=== PATIENT | female | born 1990 | race African-American/Black ===

== ENCOUNTER 2018-04-22 08:32 | Inpatient (IN) | payer MEDICAID, OTHER ==
[~2018-04-22] VITALS: Ht 160 cm; Wt 67.1 kg
[2018-04-22] MEDS ORDERED: IOHEXOL 350 MG/ML 10 ML VIAL (for RAD DIAG) IVCONTRAST ONE (08:33)
[2018-04-22 08:39] VITALS: BP 132/58; PULSE 64; RESP 16; TEMP 98.8; O2SAT 99
[2018-04-22] MEDS ORDERED: SODIUM CHLOR 0.9% 1000 ML INJ 1,000 ML IV SCH (08:54)
[2018-04-22] MEDS ORDERED: PREN1MIS10 (08:55)
[2018-04-22] MEDS ORDERED: ONDANSETRON HCL 4 MG/2 ML VIAL IVP ONE (09:00)
[2018-04-22] MEDS ORDERED: SODIUM CHLORIDE 0.9% FLUSH 10 ML FLUSH IV FLUSH PRN ×2 (09:00→15:15)
[2018-04-22] MEDS ORDERED: METOCLOPRAMIDE HCL 10 MG/2 ML VIAL IV PUSH ONE (09:00)
[2018-04-22] MEDS ORDERED: MORPHINE SULFATE 4 MG/ML INJ IV PUSH ONE (09:00)
--- NOTE | 2018-04-22 09:03 | PD ---
HPI Chief Complaint: GI Complaint Time Seen by Provider: 08:53 Travel History International Travel<30 days: No Contact w/Intl Traveler<30days: No Traveled to known affect area: No History of Present Illness HPI 27-year-old female patient presents to the ER today for 2 weeks of periumbilical abdominal pain which she currently rates at a 6 out of 10. She states that it comes and goes and gets worse at time, was worse today. She denies any nausea, vomiting, fevers, or other symptoms. She states it feels like a pulling. She has had this intermittently in the past but has never been checked out. She feels like there is a hard lump at that spot. She does not know of any alleviating or exacerbating factors. Modifying Factors: None Associated Signs & Symptoms: Periumbilical abdominal pain for 2 weeks Risk Factors: None PFSH Past Medical History Medical History: Denies Significant Hx Diminished Hearing: No Tetanus Vaccination: Unknown Influenza Vaccination: No ?: Unknown LMP: 04/19/18 Past Surgical History Section: Yes Social History Alcohol Use: No Tobacco Use: No Substance Use: No Allergies-Medications (Allergen,Severity, Reaction): Coded Allergies: No Known Allergies (Verified , 09/09/17) Reported Meds & Prescriptions Reported Meds & Active Scripts Active Reported One A Day Womens 28-0.8 & 223 mg ( Vit W/ Ferrous Fumara) 28- 800-223 Mis Review of Systems Except as stated in HPI: all other systems reviewed are Neg Physical Exam Narrative GENERAL: Well-developed young -[place] female patient currently in mild distress. Awake and oriented 3. SKIN: Focused skin assessment warm/dry. HEAD: Atraumatic. Normocephalic. EYES: Pupils equal and round. No scleral icterus. No injection or drainage. ENT: No nasal bleeding or discharge. Mucous membranes pink and moist. NECK: Trachea midline. No JVD. CARDIOVASCULAR: Regular rate and rhythm. No murmur appreciated. RESPIRATORY: No accessory muscle use. Clear to auscultation. Breath sounds equal bilaterally. GASTROINTESTINAL: Abdomen soft, tender palpation in the periumbilical region without palpable deformities, no guarding or rebound, nondistended. Hepatic and splenic margins not palpable. MUSCULOSKELETAL: No obvious deformities. No clubbing. No cyanosis. No edema. NEUROLOGICAL: Awake and alert. No obvious cranial nerve deficits. Motor grossly within normal limits. Normal speech. PSYCHIATRIC: Appropriate mood and affect; insight and judgment normal. Data Data Last Documented VS Vital Signs Date Time Temp Pulse Resp B/P (MAP) Pulse Ox O2 Delivery O2 Flow Rate FiO2 04/22/18 08:39 98.8 64 16 132/58 (82) 99 Orders Orders Complete Blood Count With Diff (04/22/18 08:54) Comprehensive Metabolic Panel (04/22/18 08:54) Lipase (04/22/18 08:54) Urinalysis - C+S If Indicated (04/22/18 08:54) Ct Abd/Pel W Iv Contrast(Rout) (04/22/18 08:54) Iv Access Insert/Monitor (04/22/18 08:54) Ecg Monitoring (04/22/18 08:54) Oximetry (04/22/18 08:54) Morphine Inj (Morphine Inj) (04/22/18 09:00) Ondansetron Inj (Zofran Inj) (04/22/18 09:00) Sodium Chlor 0.9% 1000 Ml Inj (Ns 1000 M (04/22/18 08:54) Sodium Chloride 0.9% Flush (Ns Flush) (04/22/18 09:00) Ed Urine Pregnancytest Poc (04/22/18 08:54) Metoclopramide Inj (Reglan Inj) (04/22/18 09:00) Iohexol 350 Inj (Omnipaque 350 Inj) (04/22/18 08:33) Ed Discharge Order (04/22/18 12:44) Labs Laboratory Tests Test 04/22/18 09:15 White Blood Count 8.6 TH/MM3 Red Blood Count 4.04 MIL/MM3 Hemoglobin 11.0 GM/DL Hematocrit 33.2 % Mean Corpuscular Volume 82.0 FL Mean Corpuscular Hemoglobin 27.3 PG Mean Corpuscular Hemoglobin Concent 33.3 % Red Cell Distribution Width 15.5 % Platelet Count 384 TH/MM3 Mean Platelet Volume 6.0 FL Neutrophils (%) (Auto) 58.8 % Lymphocytes (%) (Auto) 30.7 % Monocytes (%) (Auto) 9.0 % Eosinophils (%) (Auto) 1.2 % Basophils (%) (Auto) 0.3 % Neutrophils # (Auto) 5.1 TH/MM3 Lymphocytes # (Auto) 2.6 TH/MM3 Monocytes # (Auto) 0.8 TH/MM3 Eosinophils # (Auto) 0.1 TH/MM3 Basophils # (Auto) 0.0 TH/MM3 CBC Comment DIFF FINAL Differential Comment Urine Color YELLOW Urine Turbidity CLEAR Urine pH 7.0 Urine Specific [place] 1.019 Urine Protein TRACE mg/dL Urine Glucose (UA) NEG mg/dL Urine Ketones 10 mg/dL Urine Occult Blood NEG Urine Nitrite NEG Urine Bilirubin NEG Urine Urobilinogen LESS THAN 2.0 MG/DL Urine Leukocyte Esterase NEG Urine RBC 1 /hpf Urine WBC 1 /hpf Urine Squamous Epithelial Cells 1 /hpf Urine Mucus FEW /lpf Microscopic Urinalysis Comment CULT NOT INDICATED Blood Urea Nitrogen 8 MG/DL Creatinine 0.72 MG/DL Random Glucose 75 MG/DL Total Protein 7.9 GM/DL Albumin 3.7 GM/DL Calcium Level 9.0 MG/DL Alkaline Phosphatase 44 U/L Aspartate Amino Transf (AST/SGOT) 15 U/L Alanine Aminotransferase (ALT/SGPT) 18 U/L Total Bilirubin 0.6 MG/DL Sodium Level 138 MEQ/L Potassium Level 3.5 MEQ/L Chloride Level 105 MEQ/L Carbon Dioxide Level 22.4 MEQ/L Anion Gap 11 MEQ/L Estimat Glomerular Filtration Rate 118 ML/MIN Lipase 88 U/L MDM Medical Decision Making Medical Screen Exam Complete: Yes Emergency Medical Condition: Yes Medical Record Reviewed: Yes Interpretation(s) Laboratory Tests Test 04/22/18 09:15 Hemoglobin 11.0 GM/DL (11.6-15.3) Hematocrit 33.2 % (35.0-46.0) Mean Platelet Volume 6.0 FL (7.0-11.0) Monocytes (%) (Auto) 9.0 % (0.0-8.0) Urine Ketones 10 mg/dL (NEG) Urine Mucus FEW /lpf (OCC) Alkaline Phosphatase 44 U/L (45-117) Last 24 hours Impressions Abdomen/Pelvis CT 04/22/18 7135 Signed Impressions: CONCLUSION: Differential Diagnosis Periumbilical abdominal pains: Umbilical hernia versus gastritis versus diverticulitis versus other acute intra-abdominal processes Narrative Course Lab work was fairly unremarkable. CAT scan does show an umbilical hernia with small amount of fat, mild edema patient was reevaluated at 12:30 PM, states that her pain is gone. The case was discussed with Dr. Heaton of general surgery who states that the patient could follow-up if pain is controlled and otherwise does not show signs of obstruction, can follow-up in his office for further treatment. No signs of obstruction or other acute processes were identified. At this point, I have also talked about admission for further treatment with the patient as previously discussed with Dr. Heaton as well if the patient cannot tolerate the pain, but she states the pain is gone and she has insurance issues, is foreign and states she is only visiting for a few months, so she is not sure she can afford to get surgery done now. She states that she would rather go home at this point. She should return for any worsening in pain, vomiting, and as needed. Case is discussed with the patient and she states understanding. Diagnosis Primary Impression: Umbilical hernia Med/Other Pt SpecificInfo: Prescription(s) given Scripts Ibuprofen (Ibuprofen) 600 Mg Tab 600 MG PO Q6H Y for Pain/Inflammation, #20 TAB 0 Refills Prov: Lacho Adames MD 04/22/18 Disposition: 01 DISCHARGE HOME Condition: Stable Lacho Adames MD April 22, 2018 09:03
[2018-04-22 09:30] LABS: AUTOMATED NEUTROPHIL # 5.1 TH/MM3 (1.8-7.7); BASOPHIL % 0.3 % (0.0-2.0); EOSINOPHIL # 0.1 TH/MM3 (0-0.4); EOSINOPHIL % 1.2 % (0.0-4.0); HEMATOCRIT 33.2 % (35.0-46.0); LYMPH % 30.7 % (9.0-44.0); LYMPHOCYTE # 2.6 TH/MM3 (1.0-4.8); MEAN CORPUSCULAR HEMOGLOBIN 27.3 PG (27.0-34.0); MEAN CORPUSCULAR HGB CONC 33.3 % (32.0-36.0); MONOCYTE # 0.8 TH/MM3 (0-0.9); NEUT % 58.8 % (16.0-70.0); PLATELET COUNT 384 TH/MM3 (150-450); RED BLOOD COUNT 4.04 MIL/MM3 (4.00-5.30); RED CELL DISTRIBUTION WIDTH 15.5 % (11.6-17.2); WHITE BLOOD COUNT 8.6 TH/MM3 (4.0-11.0)
[2018-04-22 09:42] LABS: BILIRUBIN, URINE NEG (NEG); BLOOD, URINE NEG (NEG); GLUCOSE,URINE NEG (NEG); KETONE, URINE 10 mg/dL (NEG); MUCUS URINE FEW /lpf (OCC); NITRITE,URINE NEG (NEG); SQUAMOUS EPITHELIAL CELL URINE 1 /hpf (0-5); URINE COLOR YELLOW (YELLW/STRAW); URINE LEUKOCYTE ESTERASE NEG (NEG)
[2018-04-22 09:53] LABS: ALBUMIN 3.7 GM/DL (3.4-5.0); BICARBONATE 22.4 MEQ/L (21.0-32.0); BLOOD UREA NITROGEN 8 MG/DL (7-18); CHLORIDE 105 MEQ/L (98-107); CREATININE 0.72 MG/DL (0.50-1.00); GLOMERULAR FILTRATION RATE 118 ML/MIN (>89); GLUCOSE,RANDOM 75 MG/DL (74-106); SODIUM (NA) 138 MEQ/L (136-145)
[2018-04-22 09:54] LABS: ALT (GPT) 18 U/L (10-53); AST (GOT) 15 U/L (15-37)
[2018-04-22 09:56] LABS: ALKALINE PHOSPHATASE 44 U/L (45-117); TOTAL BILIRUBIN ADULT 0.6 MG/DL (0.2-1.0); TOTAL PROTEIN 7.9 GM/DL (6.4-8.2)
--- NOTE | 2018-04-22 12:31 | RADRPT ---
EXAM DATE: 04/22/2018 12:21 PM EDT AGE/SEX: 27 years / Female INDICATIONS: pAIN FOR TWO WEEKS LUMP AREA AT THE THE AREA OF THE UMBILICUS CLINICAL DATA: This is the patient's initial encounter. Patient reports that signs and symptoms have been present for 2 weeks and indicates a pain score of 6/10. MEDICAL/SURGICAL HISTORY: None. None. ORAL CONTRAST: No oral contrast ingested. RADIATION DOSE: 6.64 CTDI (mGy) COMPARISON: No prior exams available for comparison. TECHNIQUE: Multiple contiguous axial images were obtained through the abdomen and pelvis following b olus infusion of 97 ml Omnipaque 350 (iohexol) nonionic water-soluble contrast as a single exam dos e. No oral contrast ingested. Using automated exposure control and adjustment of the mA and/or kV ac cording to patient size, the radiation dose was kept as low as reasonably achievable to obtain optima l diagnostic quality images. FINDINGS: Dependent atelectasis present in the lungs. No acute findings in the liver, spleen, adrenals, kidneys or pancreas. No calcified gallstones or fazal iary ductal dilatation. No free fluid. No bowel obstruction. No adenopathy. 2 cm right adnexal cyst. There is a small umbilical hernia containing fat and possibly associated with some mild edema. CONCLUSION: 1. 2 cm umbilical hernia containing fat and some edema or inflammatory change. No acute findings wit hin the abdomen and pelvis. Small right adnexal cyst. Electronically signed by: Bandar Hyman MD 04/22/2018 12:30 PM EDT
[2018-04-22] MEDS ORDERED: IBUP-232 PO (12:53)
[2018-04-22 14:23] VITALS: BP 130/65; PULSE 62; RESP 18; O2SAT 99
[2018-04-22] MEDS ORDERED: MORPHINE SULFATE 4 MG/ML INJ IV PRN (15:15)
[2018-04-22] MEDS ORDERED: ONDANSETRON ODT 4 MG TAB PO PRN (15:15)
--- NOTE | 2018-04-22 15:23 | HHI.HP ---
cc: Alok Heaton MD HPI Service General Surgery Primary Care Physician No Primary Care Physician Admission Diagnosis Umbilical hernia with incarceration Chief Complaint: Abodminal pain x 2 weeks History of Present Illness This is a 27 year old female with no significant medical history who presents to the ED with complaints of periumbilical pain, nausea and vomiting. She describes her pain as sharp and rates it a 6 out of 10. She reports this pain has been going on for about 2 weeks. She reports her last bowel movement was Friday. She reports she is passing very little flatus. A CT abdomen/pelvis was obtained which visualizes a 2 cm fat containing umbilical hernia. She continues to have a moderate amount of tenderness around her umbilicus. A General Surgery admission has been requested. Review of Systems Constitutional: DENIES: Fatigue, Chills, Change in appetite Endocrine: DENIES: Polydipsia, Polyuria, Polyphagia Eyes: DENIES: Diplopia, Eye inflammation Ears, nose, mouth, throat: DENIES: Hearing loss Respiratory: DENIES: Apneas Cardiovascular: DENIES: Chest pain Gastrointestinal: COMPLAINS OF: Abdominal pain, Nausea, Vomiting Genitourinary: DENIES: Urinary frequency Musculoskeletal: DENIES: Joint pain Integumentary: DENIES: Abnormal pigmentation Hematologic/lymphatic: DENIES: Bruising Immunologic/allergic: DENIES: Eczema Neurologic: DENIES: Abnormal gait, Headache, Localized weakness Psychiatric: DENIES: Mood changes, Depression, Hallucinations Past Family Social History Past Medical History None Past Surgical History section Reported Medications None Allergies: Coded Allergies: No Known Allergies (Verified , 09/09/17) Active Ordered Medications Current Medications Medications (Trade) Dose Ordered Sig/Leeann Route Start Time Stop Time Status Last Admin (NS Flush) 2 ml UNSCH PRN IV FLUSH 04/22/18 09:00 Family History Noncontributory Social History Denies tobacco use Denies ETOH use Denies illicit drug use Physical Exam Vital Signs Vital Signs Date Time Temp Pulse Resp B/P (MAP) Pulse Ox O2 Delivery O2 Flow Rate FiO2 04/22/18 14:23 62 18 130/65 (86) 99 Room Air 04/22/18 08:39 98.8 64 16 132/58 82 99 Physical Exam GENERAL: Very pleasant 27 year old female resting in bed in no acute distress. SKIN: Warm and dry. HEAD: Atraumatic. Normocephalic. EYES: Pupils equal and round. No scleral icterus. No injection or drainage. ENT: No nasal bleeding or discharge. Mucous membranes pink and moist. NECK: Trachea midline. CARDIOVASCULAR: Regular rate and rhythm. RESPIRATORY: No accessory muscle use. Clear to auscultation. Breath sounds equal bilaterally. GASTROINTESTINAL: Abdomen soft, nondistended. Periumbilical area is tender to palpation; non-reducible umbilical hernia. MUSCULOSKELETAL: Extremities without clubbing, cyanosis, or edema. No obvious deformities. NEUROLOGICAL: Awake and alert. No obvious cranial nerve deficits. Motor grossly within normal limits. Five out of 5 muscle strength in the arms and legs. Normal speech. PSYCHIATRIC: Appropriate mood and affect; insight and judgment normal. Laboratory Laboratory Tests Test 04/22/18 09:15 White Blood Count 8.6 Red Blood Count 4.04 Hemoglobin 11.0 Hematocrit 33.2 Mean Corpuscular Volume 82.0 Mean Corpuscular Hemoglobin 27.3 Mean Corpuscular Hemoglobin Concent 33.3 Red Cell Distribution Width 15.5 Platelet Count 384 Mean Platelet Volume 6.0 Neutrophils (%) (Auto) 58.8 Lymphocytes (%) (Auto) 30.7 Monocytes (%) (Auto) 9.0 Eosinophils (%) (Auto) 1.2 Basophils (%) (Auto) 0.3 Neutrophils # (Auto) 5.1 Lymphocytes # (Auto) 2.6 Monocytes # (Auto) 0.8 Eosinophils # (Auto) 0.1 Basophils # (Auto) 0.0 CBC Comment DIFF FINAL Differential Comment Urine Color YELLOW Urine Turbidity CLEAR Urine pH 7.0 Urine Specific [place] 1.019 Urine Protein TRACE Urine Glucose (UA) NEG Urine Ketones 10 Urine Occult Blood NEG Urine Nitrite NEG Urine Bilirubin NEG Urine Urobilinogen LESS THAN 2.0 Urine Leukocyte Esterase NEG Urine RBC 1 Urine WBC 1 Urine Squamous Epithelial Cells 1 Urine Mucus FEW Microscopic Urinalysis Comment CULT NOT INDICATED Blood Urea Nitrogen 8 Creatinine 0.72 Random Glucose 75 Total Protein 7.9 Albumin 3.7 Calcium Level 9.0 Alkaline Phosphatase 44 Aspartate Amino Transf (AST/SGOT) 15 Alanine Aminotransferase (ALT/SGPT) 18 Total Bilirubin 0.6 Sodium Level 138 Potassium Level 3.5 Chloride Level 105 Carbon Dioxide Level 22.4 Anion Gap 11 Estimat Glomerular Filtration Rate [address] abdomen/pelvis--- fat containing umbilical hernia; no signs of obstruction Caprini VTE Risk Assessment Caprini VTE Risk Assessment: No/Low Risk (score <= 1) VTE Pharm Contraindication: going to OR tomorrow Caprini Risk Assessment Model Point Value = 1 Point Value = 2 Point Value = 3 Point Value = 5 Age 41-60 Minor surgery BMI > 25 kg/m2 Swollen legs Varicose veins or History of unexplained or recurrent spontaneous Oral contraceptives or hormone replacement Sepsis (< 1 month) Serious lung disease, including pneumonia (< 1 month) Abnormal pulmonary function Acute myocardial infarction Congestive heart failure (< 1 month) History of inflammatory bowel disease Medical patient at bed rest Age 61-74 Arthroscopic surgery Major open surgery (> 45 min) Laparoscopic surgery (> 45 min) Malignancy Confined to bed (> 72 hours) Immobilizing plaster cast Central venous access Age >= 75 History of VTE Family history of VTE Factor V Leiden Prothrombin [id number] Lupus anticoagulant Anticardiolipin antibodies Elevated serum homocysteine Heparin-induced thrombocytopenia Other congenital or acquired thrombophilia Stroke (< 1 month) Elective arthroplasty Hip, pelvis, or leg fracture Acute spinal cord injury (< 1 month) Prophylaxis Regimen Total Risk Factor Score Risk Level Prophylaxis Regimen 0-1 Low Early ambulation 2 Moderate Order ONE of the following: *Sequential Compression Device (SCD) *Heparin 5000 units SQ BID 3-4 Higher Order ONE of the following medications: *Heparin 5000 units SQ TID *Enoxaparin/Lovenox 40 mg SQ daily (WT < 150 kg, CrCl > 30 mL/min) *Enoxaparin/Lovenox 30 mg SQ daily (WT < 150 kg, CrCl > 10-29 mL/min) *Enoxaparin/Lovenox 30 mg SQ BID (WT < 150 kg, CrCl > 30 mL/min) AND/OR *Sequential Compression Device (SCD) 5 or more Highest Order ONE of the following medications: *Heparin 5000 units SQ TID (Preferred with Epidurals) *Enoxaparin/Lovenox 40 mg SQ daily (WT < 150 kg, CrCl > 30 mL/min) *Enoxaparin/Lovenox 30 mg SQ daily (WT < 150 kg, CrCl > 10-29 mL/min) *Enoxaparin/Lovenox 30 mg SQ BID (WT < 150 kg, CrCl > 30 mL/min) AND *Sequential Compression Device (SCD) Assessment and Plan Assessment and Plan 27 year old female with incarcerated umbilical hernia with omental fat -Will plan for operative repair tomorrow -reg diet tonight; NPO after MN -IVF -Pain control -Obtain consents -Procedure explained in detail including primary repair vs repair with mesh placement -All questions were answered Discussed Condition With Dr. Sudarshan Christensen RN Ms. Obi Collaborating MD Comments abdominal pain patient seen at bedside ct reviewed showing incarceration plan for or tomorrow Attestation The exam, history, and the medical decision-making described in the above note were completed with the assistance of the mid-level provider. I reviewed and agree with the findings presented. I attest that I had a [id number] encounter with the patient on the same day, and personally performed and documented my assessment and findings in the medical record. Bisi Morgan/Nursery Helper ARNP April 22, 2018 15:23 Alok Heaton MD April 22, 2018 15:33
[2018-04-22] MEDS ORDERED: ceFAZolin 2 GM PREMIX 50 ML IV SCH (15:30)
[2018-04-22] MEDS: SODIUM CHLOR 0.9% 1000 ML INJ 1,000 ML IV SCH ×2 (16:39→20:31)
[2018-04-22 17:14] VITALS: BP 117/67; PULSE 66; RESP 17; TEMP 98; O2SAT 100
[2018-04-22 20:00] VITALS: BP 112/57; PULSE 65; RESP 18; TEMP 98.3; O2SAT 98
[2018-04-22] MEDS: SODIUM CHLORIDE 0.9% FLUSH 10 ML FLUSH IV FLUSH SCH (20:29)
[2018-04-23] VITALS: BP 110/65; PULSE 65; RESP 18; TEMP 97.8; O2SAT 99
[2018-04-23] MEDS ORDERED: POVIDONE IODINE 5% (ANTISEPSIS KIT) 4 APPLICATIONS EACH NARE PRN (01:00)
[2018-04-23] MEDS ORDERED: CHLORHEXIDINE GLUCONATE 2 % 1 PACK (2 CLOTHS) TOPICAL PRN (01:00)
[2018-04-23] MEDS ORDERED: LACTATED RINGER'S 1000 ML IV PRN (01:00)
[2018-04-23] MEDS ORDERED: INSULIN HUMAN REGULAR 1,000 UNITS/10 ML VIAL SQ PRN (01:00)
[2018-04-23] MEDS: SODIUM CHLOR 0.9% 1000 ML INJ 1,000 ML IV SCH ×2 (07:09→20:15)
[2018-04-23 08:00] VITALS: BP 110/66; PULSE 53; RESP 20; TEMP 98.1; O2SAT 99
[2018-04-23] MEDS: SODIUM CHLORIDE 0.9% FLUSH 10 ML FLUSH IV FLUSH SCH ×2 (09:00→22:24)
[2018-04-23 12:00] VITALS: BP 110/58; PULSE 58; RESP 19; TEMP 98.2; O2SAT 99
[2018-04-23] MEDS ORDERED: BUPIVACAINE/EPINEPHRINE 0.75% PF 30 ML VIAL ONE (14:32)
[2018-04-23] MEDS ORDERED: BUPIVACAINE/EPINEPHRINE 0.25% 50 ML VIAL ONE (15:07)
[2018-04-23] MEDS ORDERED: ACETAMINOPHEN 1000 MG/100 ML 100 ML IV ONE (15:18)
--- NOTE | 2018-04-23 16:15 | HHI.PR ---
Immediate Post Op Note Procedure Date: April 23, 2018 Pre Op Diagnosis: incarcerated umbilical hernia Post Op Diagnosis: same Surgeon: Alok Heaton MD Grab Jack Worker(s): sid Procedure: lap umbilical hernia repair with mesh Findings: small hernia defect with incarcerated omental fat Complications: none Specimen(s) removed: none Estimated blood loss: 5cc Anesthesia: General Drains: None Patient to: PACU Patient Condition: Good Alok Heaton MD April 23, 2018 16:15
[2018-04-23] MEDS ORDERED: BUPIVACAINE LIPOSOME PF 1.3% 20 ML VIAL ONE (16:24)
[2018-04-23] MEDS ORDERED: SODIUM CHLORIDE 0.9% 20 ML VIAL ONE (16:38)
[2018-04-23] MEDS ORDERED: LIDOCAINE HCL 1% PF 5 ML SYRINGE OTHER ONE (16:49)
[2018-04-23] MEDS ORDERED: GLYCOPYRROLATE 1 MG/5 ML SYRINGE IV PUSH ONE (16:49)
[2018-04-23] MEDS ORDERED: KETOROLAC TROMETHAMINE 30 MG/ML (IVP) VIAL IV PUSH ONE (16:49)
[2018-04-23] MEDS ORDERED: ePHEDrine/NS 25 MG/5 ML SYRINGE IV ONE (16:49)
[2018-04-23] MEDS ORDERED: DEXAMETHASONE SOD PHOS 4 MG/ML VIAL IV ONE (16:49)
[2018-04-23] MEDS ORDERED: ONDANSETRON HCL 4 MG/2 ML VIAL IV PUSH ONE (16:49)
[2018-04-23] MEDS ORDERED: SUCCINYLCHOLINE CHLORIDE 100 MG/5 ML SYRINGE IV PUSH ONE (16:49)
[2018-04-23] MEDS ORDERED: NEOSTIGMINE 5 MG/5 ML SYRINGE IV PUSH ONE (16:49)
[2018-04-23] MEDS ORDERED: ROCURONIUM INJ 50 MG/5 ML SYRINGE IV PUSH ONE (16:49)
[2018-04-23] MEDS ORDERED: LACTATED RINGER'S 1000 ML INJ 1,000 ML IV ONE (16:49)
[2018-04-23] MEDS ORDERED: PROPOFOL 200 MG/20 ML AMP IV ONE (16:49)
[2018-04-23] MEDS ORDERED: BUPIVACAINE LIPOSOME PF 1.3% 20 ML VIAL INFIL ONE (17:11)
[2018-04-23] MEDS ORDERED: DO NOT ADM ANY ANTICOAGULANT DRUGS PRN (18:06)
[2018-04-23] MEDS ORDERED: MIDAZOLAM HCL 2 MG/2 ML VIAL ONE (18:13)
[2018-04-23] MEDS ORDERED: *morphine SULFATE 10 MG/ML PERIprocedure ONLY ONE (18:32)
[2018-04-23 20:00] VITALS: BP 114/73; PULSE 78; RESP 16; TEMP 98.5; O2SAT 98
[2018-04-23] MEDS: MORPHINE SULFATE 4 MG/ML INJ IV PRN (22:32)
[2018-04-24] VITALS: BP 107/63; PULSE 55; RESP 16; TEMP 98.1; O2SAT 100
[2018-04-24 04:00] VITALS: BP 113/56; PULSE 57; RESP 16; TEMP 98.1; O2SAT 99
[2018-04-24] MEDS: MORPHINE SULFATE 4 MG/ML INJ IV PRN ×3 (05:15→15:39)
[2018-04-24] MEDS: SODIUM CHLOR 0.9% 1000 ML INJ 1,000 ML IV SCH ×3 (05:18→23:09)
[2018-04-24 08:00] VITALS: BP 105/56; PULSE 56; RESP 16; TEMP 98; O2SAT 99
[2018-04-24] MEDS: SODIUM CHLORIDE 0.9% FLUSH 10 ML FLUSH IV FLUSH SCH ×2 (09:00→22:00)
[2018-04-24 12:00] VITALS: BP 106/56; PULSE 69; RESP 18; TEMP 98.5; O2SAT 96
--- NOTE | 2018-04-24 14:59 | MP ---
cc: Alok Heaton MD DATE OF OPERATION: 04/23/2018 PREOPERATIVE DIAGNOSIS: Incarcerated umbilical hernia. POSTOPERATIVE DIAGNOSIS: Incarcerated umbilical hernia. PROCEDURE PERFORMED: Laparoscopic umbilical hernia repair. SURGEON: Alok Heaton MD PARTS ROOM ASSISTANT: Cira. ANESTHESIA: GETA. IV FLUIDS: See anesthesia sheet. ESTIMATED BLOOD LOSS: 5 mL. DRAINS: None. COMPLICATIONS: None. WOUND CLASSIFICATION: Clean. FINDINGS: Incarcerated umbilical hernia, small double hernia defects noted, periumbilical. SPECIMENS: None. COMPLICATIONS: None. INDICATIONS: The patient is a 27-year-old female who presents with acute onset of abdominal pain. She had further workup including a CT scan showing incarcerated umbilical hernia. Therefore, decision was made for manual reduction attempted and laparoscopic umbilical hernia repair. Discussed with the patient in detail. DETAILS OF PROCEDURE: The patient was taken to the operating suite and placed in supine position. She was prepped and draped in the usual sterile fashion after induction of general endotracheal anesthesia. A brief timeout was done stating the correct patient, procedure and surgical site; we were all in agreement with this. Attention first directed to the left upper quadrant where local anesthetic injected. A small stab pauline incision was made with an 11 blade. A Visiport 5 mm Optiview port was entered into the abdomen safely and cursory inspection revealed no evidence of injury. Abdomen was insufflated to 15 mmHg pneumoperitoneum. On inspection, there was noted to be incarcerated omental fat in an umbilical hernia. Two other ports were placed, one in the left mid-quadrant and in the left lower quadrant port; these were both 5 mm ports. The omentum was dissected down using hook Bovie electrocautery and EndoShears. The hernia sac was excised and noted to be a double hernia defect, umbilical and periumbilical defect. Next, 0 Vicryl was obtained in a [id number] fashion and was used to close the defects. Next, the 12 x 12 cm [place] mesh was obtained and hypo needle was used to map out where the mesh was to be placed and measured appropriately. The stay suture of [place] sutures were attached to the 4 corners of the mesh and placed intraperitoneal through the 5 mm port after removal of port. These were used for transfascial sutures and suture passer was obtained in order to grasp the sutures through the abdomen. These were noted to be appropriately spaced and the mesh lie taut after tying the transfascial sutures in the 12 o'clock, 3 o'clock, 6 o'clock, and 9 o'clock positions. Local anesthetic including Exparel was injected. Suture tacker was done to the periphery of the mesh as well. Next, the pneumoperitoneum was removed. The ports were removed. Local anesthetic again was injected with Exparel to ports, 4-0 Monocryl used for subcuticular suture. Sterile dressings, including Mastisol and Steri-Strips were placed. The patient tolerated the procedure. No intraoperative complications. All lap and instrument counts were correct at the end of the procedure. The patient was extubated and taken stable to PACU. MD ANY Parker/STEFFI , 01:26 PM , 02:58 PM
[2018-04-24 16:00] VITALS: BP 110/56; PULSE 65; RESP 18; TEMP 98.6; O2SAT 98
[2018-04-24] MEDS ORDERED: ENOXAPARIN SODIUM 30 MG/0.3 ML SYRINGE SQ SCH (17:00)
[2018-04-24 20:00] VITALS: BP 100/56; PULSE 82; RESP 20; TEMP 98.6; O2SAT 97
[2018-04-24] MEDS: oxyCODONE/ACETAMINOPHEN 5 MG/325 MG TAB PO PRN (22:00)
[2018-04-25] VITALS: BP 105/56; PULSE 64; RESP 20; TEMP 97.9; O2SAT 96
[2018-04-25] MEDS: SODIUM CHLOR 0.9% 1000 ML INJ 1,000 ML IV SCH ×2 (07:09→15:09)
[2018-04-25 08:00] VITALS: BP 108/55; PULSE 58; RESP 16; TEMP 98.3; O2SAT 98
[2018-04-25] MEDS: SODIUM CHLORIDE 0.9% FLUSH 10 ML FLUSH IV FLUSH SCH (09:00)
[2018-04-25] MEDS: MORPHINE SULFATE 4 MG/ML INJ IV PRN (11:10)
[2018-04-25 12:00] VITALS: BP 110/58; PULSE 68; RESP 18; TEMP 100.2; O2SAT 99
--- NOTE | 2018-04-25 13:55 | HHI.PR ---
Subjective Subjective Notes Sore, but tolerating diet Using PO pain meds Objective Vitals/I&O Vital Signs Date Time Temp Pulse Resp B/P (MAP) Pulse Ox O2 Delivery O2 Flow Rate FiO2 04/25/18 12:00 100.2 68 18 110/58 (75) 99 04/23/18 20:09 Nasal Cannula 2.[address] abdomen/pelvis--- fat containing umbilical hernia; no signs of obstruction Lungs: Clear Abdomen: Post-op tenderness Narrative Exam Steri strips all dry and intact Tegaderm dressing dry A/P Assessment and Plan POD #1 lap umbilical hernia repair with gore dualmesh Home today with PO pain meds F/U Dr. Heaton later this week IS to go home with patient Sammy Agustin MD April 25, 2018 13:55
[2018-04-25] MEDS ORDERED: PERC5TAB12 PO (13:56)
--- NOTE | 2018-04-25 13:57 | HHI.DS ---
Discharge Summary Admission Date April 22, 2018 at 14:15 Admitting Diagnosis Umbilical hernia/abdominal pain Brief History This is a 27 year old female with no significant medical history who presents to the ED with complaints of periumbilical pain, nausea and vomiting. She describes her pain as sharp and rates it a 6 out of 10. She reports this pain has been going on for about 2 weeks. She reports her last bowel movement was Friday. She reports she is passing very little flatus. A CT abdomen/pelvis was obtained which visualizes a 2 cm fat containing umbilical hernia. She continues to have a moderate amount of tenderness around her umbilicus. A General Surgery admission has been requested. CBC/BMP: 04/22/18 0915 04/22/18 0915 PE at Discharge Steri strips all dry and intact Tegaderm dressing dry Hospital Course Patient underwent above named procedure 04/24; pain controlled with PO meds. Stable for discharge. Pt Condition on Discharge: Good Discharge Disposition: Discharge Home Discharge Instructions DIET: Follow Instructions for: As Tolerated, No Restrictions Activities you can perform: Shower Only-No Bath Activities to Avoid: Strenuous Activity Sammy Agustin MD April 25, 2018 13:57
--- NOTE | 2018-04-25 13:58 | HHI.DS ---
Discharge Summary Admission Date April 22, 2018 at 14:15 Admitting Diagnosis Umbilical hernia/abdominal pain Procedures Laparoscopic umbilical hernia repair with mesh 04/24/18 Brief History This is a 27 year old female with no significant medical history who presents to the ED with complaints of periumbilical pain, nausea and vomiting. She describes her pain as sharp and rates it a 6 out of 10. She reports this pain has been going on for about 2 weeks. She reports her last bowel movement was Friday. She reports she is passing very little flatus. A CT abdomen/pelvis was obtained which visualizes a 2 cm fat containing umbilical hernia. She continues to have a moderate amount of tenderness around her umbilicus. A General Surgery admission has been requested. CBC/BMP: 04/22/18 0915 04/22/18 0915 PE at Discharge Steri strips all dry and intact Tegaderm dressing dry Pt Condition on Discharge: Good Discharge Disposition: Discharge Home Discharge Instructions DIET: Follow Instructions for: As Tolerated, No Restrictions Activities you can perform: Shower Only-No Bath Activities to Avoid: Strenuous Activity Sammy Agustin MD April 25, 2018 13:58
[2018-04-25] MEDS: oxyCODONE/ACETAMINOPHEN 5 MG/325 MG TAB PO PRN (16:08)
== END 2018-04-25 16:50 | disposition home or self-care (01) | DRG 355 ==
LOC: NEPE 08:32 → NEDA 14:15 → N07A 16:59
PROVIDERS: ADMIT Surgery; ATTEND Surgery
PROC: 0WUF4JZ Supplement Abdominal Wall with Synthetic Substitute, Percutaneous Endoscopic Approach (ICD-10-PCS; principal; 2018-04-23 16:03)
DX: K42.0 Umbilical hernia with obstruction, without gangrene (principal)
CPT/HCPCS: 74177; 80053; 81001; 83690; 84702; 84703; 85025; 96361; 96374; 96375; C1781; C9290; J0131; J0330; J0690; J1100; J1650; J1885; J2250; J2270; J2405; J2710; J2765; J3010; J7030; J7120; Q9967